=== PATIENT | male | born 1950 | race Caucasian/White ===

== ENCOUNTER 2019-10-08 09:23 | Outpatient (CLI) | payer BC ==
[2019-10-08 10:30] LABS: Estimated GFR-MDRD - POC Greater than 90
--- NOTE | 2019-10-08 13:41 | MRI ---
MRI OF THE PROSTATE WITHOUT AND WITH CONTRAST: 10/08/19 COMPARISON: None. HISTORY: Elevated PSA. Prostate biopsy done five years ago. TECHNIQUE: Multiplanar and multisequence MR images were obtained in the prostate without and with IV contrast. FINDINGS: There is mild hypertrophy of the central gland consistent with BPH. Estimated prostate volume is 48 m L. No suspicious low T2 signal lesions are seen in the prostate. No restricted diffusion is seen in the peripheral zone of the prostate. No low signal is seen on the ADC map in the peripheral zone of the p rostate. The seminal vesicle and neurovascular bundles appear intact. No pelvic adenopathy is seen. No marrow signal is present. IMPRESSION: PI-RADS category 2 - low likelihood that a clinically significant cancer is present. POS: C
[2019-10-08] MEDS ORDERED: Magnevist 469MG/ML 20 ML VIAL ONE (13:44)
== END 2019-10-08 09:24 | disposition home or self-care (01) ==
LOC: TBSIIMAG 09:23
PROVIDERS: ATTEND Urology
DX: R97.20 Elevated prostate specific antigen [PSA] (principal)
CPT/HCPCS: 72197; 82565; A9579